=== PATIENT | male | born 1990 | race Caucasian/White ===

== ENCOUNTER 2021-05-05 09:42 | Emergency (ER) | payer SELFPAY ==
[2021-05-05] MEDS ORDERED: Sodium Chloride 0.9% 2.5 ML Syringe FLUSH PRN (09:44)
[2021-05-05] MEDS ORDERED: Sodium Chloride 0.9% 10 ML Syringe FLUSH PRN (09:44)
[2021-05-05] MEDS ORDERED: ceFAZolin 1 GM in Premix Bag 1 BAG IV ONE ×4 (09:46)
--- NOTE | 2021-05-05 09:49 | EDM.PDOC ---
ED HPI GENERAL MEDICAL PROBLEM - General Chief Complaint: Laceration Stated Complaint: CUT TIP OF FINGER OFF WITH SAW Time Seen by Provider: 05/05/21 09:44 - History of Present Illness INITIAL COMMENTS - FREE TEXT/NARRATIVE: 30-year-old male no relevant past medical history up-to-date tetanus vaccination presents for injury to right index finger. Patient was using a table saw when he caught the end of his right index finger. He notes bleeding that was controlled prior to arrival. Denies any other injuries. - Related Data Allergies Allergy/AdvReac Type Severity Reaction Status Date / Time No Known Allergies Allergy Verified 05/05/21 09:47 Home Meds: Home Meds Acetaminophen/oxyCODONE [Percocet 325-5 MG] 1 each PO Q4H PRN #12 tab 05/05/21 [Rx] cephALEXin [Keflex] 500 mg PO Q8H 7 Days #21 cap 05/05/21 [Rx] ED ROS GENERAL - Review of Systems Review Of Systems: Comprehensive ROS is negative, except as noted in HPI. ED EXAM, SKIN/RASH Exam: See Below Exam Limited By: No Limitations General Appearance: Alert, WD/WN, No Apparent Distress Ears: Hearing Grossly Normal Throat/Mouth: Normal Voice, No Airway Compromise Head: Atraumatic, Normocephalic Neck: Normal Inspection Respiratory/Chest: No Respiratory Distress, No Accessory Muscle Use Cardiovascular: Normal Peripheral Pulses Extremities: Other (amputation injury of distal DIP R index finger which does not involve the nail bed; +open fracture) Neurological: Alert, Normal Cognition, Normal Gait Psychiatric: Normal Affect, Normal Mood Skin: Warm, Dry, Intact, Normal Color Course - Vital Signs Last Recorded V/S: Last Vital Signs Temp 97.2 F 05/05/21 09:48 Pulse 94 05/05/21 09:48 Resp 16 05/05/21 09:48 BP 162/86 H 05/05/21 09:48 Pulse Ox 98 05/05/21 09:48 - Orders/Labs/Meds Orders: Active Orders 24 hr Category Date Time Status Sodium Chloride 0.9% [Saline Flush] Med 05/05/21 09:44 Active 10 ml FLUSH ASDIRECTED PRN Sodium Chloride 0.9% [Saline Flush] Med 05/05/21 09:44 Active 2.5 ml FLUSH ASDIRECTED PRN Saline Lock Insert [OM.PC] Stat Oth 05/05/21 09:45 Ordered Medication Orders Sodium Chloride (Sodium Chloride 0.9% 10 Ml Syringe) 10 ml FLUSH ASDIRECTED PRN PRN Reason: Keep Vein Open Last Admin: 05/05/21 10:02 Dose: 10 ml Documented by: YUMIKO Sodium Chloride (Sodium Chloride 0.9% 2.5 Ml Syringe) 2.5 ml FLUSH ASDIRECTED PRN PRN Reason: Keep Vein Open Last Admin: 05/05/21 10:03 Dose: 2.5 ml Documented by: YUMIKO Labs: Laboratory Tests 05/05/21 05/05/21 Range/Units 09:45 09:45 WBC 12.84 H (4.0-11.0) K/uL RBC 5.60 (4.50-5.90) M/uL Hgb 16.2 (13.0-17.0) g/dL Hct 47.2 (38.0-50.0) % MCV 84.3 (80.0-98.0) fL MCH 28.9 (27.0-32.0) pg MCHC 34.3 (31.0-37.0) g/dL RDW Std Deviation 43.5 (28.0-62.0) fl RDW Coeff of Rachel 14 (11.0-15.0) % Plt Count 360 (150-400) K/uL MPV 10.20 (7.40-12.00) fL Neut % (Auto) 58.2 (48.0-80.0) % Lymph % (Auto) 27.4 (16.0-40.0) % Gove % (Auto) 10.0 (0.0-15.0) % Eos % (Auto) 4.1 (0.0-7.0) % Baso % (Auto) 0.3 (0.0-1.5) % Neut # (Auto) 7.5 H (1.4-5.7) K/uL Lymph # (Auto) 3.5 H (0.6-2.4) K/uL Gove # (Auto) 1.3 H (0.0-0.8) K/uL Eos # (Auto) 0.5 (0.0-0.7) K/uL Baso # (Auto) 0.0 (0.0-0.1) K/uL Nucleated RBC % 0.0 /100WBC Nucleated RBCs # 0 K/uL Sodium 140 (136-148) mmol/L Potassium 3.7 (3.5-5.1) mmol/L Chloride 105 (98-107) mmol/L Carbon Dioxide 25.1 (21.0-32.0) mmol/L BUN 20 H (7.0-18.0) mg/dL Creatinine 1.1 (0.8-1.3) mg/dL Est Cr Clr Drug Dosing 107.78 mL/min Estimated GFR (MDRD) > 60.0 ml/min Glucose 140 H (74-106) mg/dL Calcium 9.1 (8.5-10.1) mg/dL Meds: Medications Generic Name Dose Route Start Last Admin Trade Name Freq PRN Reason Stop Dose Admin Sodium Chloride 10 ml 05/05/21 09:44 05/05/21 10:02 Sodium Chloride 0.9% 10 Ml Syringe FLUSH 10 ml ASDIRECTED PRN Administration Keep Vein Open Sodium Chloride 2.5 ml 05/05/21 09:44 05/05/21 10:03 Sodium Chloride 0.9% 2.5 Ml Syringe FLUSH 2.5 ml ASDIRECTED PRN Administration Keep Vein Open Discontinued Medications Generic Name Dose Route Start Last Admin Trade Name Freq PRN Reason Stop Dose Admin Cefazolin Sodium/Dextrose 1 gm 50 mls @ 100 mls/hr 05/05/21 09:46 05/05/21 10:02 / Premix IV 05/05/21 10:15 100 mls/hr ONETIME ONE Administration Cefazolin Sodium/Dextrose 1 gm 50 mls @ 100 mls/hr 05/05/21 09:46 05/05/21 10:02 / Premix IV 05/05/21 10:15 100 mls/hr ONETIME ONE Administration - Re-Assessments/Exams Free Text/Narrative Re-Assessment/Exam: 05/05/21 09:48 We will get x-ray. Will give IV antibiotics for open fracture. Will reach out to hand surgery for disposition recommendations. 05/05/21 10:[address] Guillen, hand surgery at [facility], who agrees with plan for IV antibiotics, discharged on Keflex, irrigated and wrapped wound, follow-up with him Cory morning. Patient is aware of the plan. Departure - Departure Time of Disposition: 10:30 Disposition: Home, Self-Care 01 Condition: Good Clinical Impression: Fingertip amputation Qualifiers: Encounter type: initial encounter Qualified Code(s): S68.119A - Complete traumatic metacarpophalangeal amputation of unspecified finger, initial encounter - Discharge Information Prescriptions: cephALEXin [Keflex] 500 mg PO Q8H 7 Days #21 cap Acetaminophen/oxyCODONE [Percocet 325-5 MG] 1 each PO Q4H PRN #12 tab PRN Reason: Pain Instructions: Traumatic Finger Amputation, COVID-19 Vaccine Information Referrals: PCP,None [Primary Care Provider] - Forms: ED Department Discharge Additional Instructions: Please follow-up with Dr. Guillen on Saturday. His information is provided below. Please take antibiotics as prescribed. I have also sent a short course of pain medication to your pharmacy. Dr. Guillen Hand [facility] W[facility] Surgery - [address] [place] [address] [address]rd Floor [phone] The best way to protect yourself and others from COVID-19 is to take one of the three safe and effective vaccines that have been proven to substantially reduce risk of both infection and severe illness. [facility] is currently offering COVID vaccinations for anyone age 18 and older. To schedule an appointment call [phone]. Or to be contacted by our clinics about scheduling your vaccine online, please go to [email or web address] The following information is given to patients seen in the emergency department who are being discharged to home. This information is to outline your options for follow-up care. We provide all patients seen in our emergency department with a follow-up referral. The need for follow-up, as well as the timing and circumstances, are variable depending upon the specifics of your emergency department visit. If you don't have a primary care physician on staff, we will provide you with a referral. We always advise you to contact your personal physician following an emergency department visit to inform them of the circumstance of the visit and for follow-up with them and/or the need for any referrals to a consulting specialist. The emergency department will also refer you to a specialist when appropriate. This referral assures that you have the opportunity for follow-up care with a specialist. All of these measure are taken in an effort to provide you with optimal care, which includes your follow-up. Under all circumstances we always encourage you to contact your private physician who remains a resource for coordinating your care. When calling for follow-up care, please make the office aware that this follow-up is from your recent emergency room visit. If for any reason you are refused follow-up, please contact the [facility] Emergency Department at and asked to speak to the emergency department charge nurse. Please follow up with your primary care physician. If you do not have a primary care physician, see below: [facility] [address] [place] [id number] My [facility] [address] [place] [id number] Sepsis Event Note (ED) - Focused Exam Vital Signs: Vital Signs Temp Pulse Resp BP Pulse Ox 05/05/21 09:48 97.2 F 94 16 162/86 H 98 - My Orders Last 24 Hours: My Active Orders 05/05/21 09:44 Sodium Chloride 0.9% [Saline Flush] 10 ml FLUSH ASDIRECTED PRN Sodium Chloride 0.9% [Saline Flush] 2.5 ml FLUSH ASDIRECTED PRN 05/05/21 09:45 Saline Lock Insert [OM.PC] Stat - Assessment/Plan Last 24 Hours: My Active Orders 05/05/21 09:44 Sodium Chloride 0.9% [Saline Flush] 10 ml FLUSH ASDIRECTED PRN Sodium Chloride 0.9% [Saline Flush] 2.5 ml FLUSH ASDIRECTED PRN 05/05/21 09:45 Saline Lock Insert [OM.PC] Stat
[2021-05-05 10:30] LABS: BLOOD UREA NITROGEN,BUN 20 mg/dL (7.0-18.0); CARBON DIOXIDE,CO2 25.1 mmol/L (21.0-32.0); CHLORIDE,CL 105 mmol/L (98-107); GLUCOSE RANDOM 140 mg/dL (74-106); POTASSIUM,K 3.7 mmol/L (3.5-5.1); SODIUM,NA 140 mmol/L (136-148)
--- NOTE | 2021-05-05 10:32 | CR ---
INDICATION: Cut off finger tip with saw. COMPARISON: None. TECHNIQUE: Right index finger 3 views. FINDINGS: Large soft tissue defect of the distal index finger tip with underlying osseous fragmentation/nondisplaced fracture and loss of dorsal distal portion of the distal phalanx best seen on lateral view. IMPRESSION: Soft tissue injury with underlying nondisplaced fracture and loss of fracture fragment/bone of distal aspect of the distal phalanx. Dictated by Ciro Delcid MD @ 05/05/2021 10:31:[address] Ciro Delcid @ May 05 2021 10:31AM
== END 2021-05-05 10:44 | disposition home or self-care (01) ==
LOC: MW.ED 09:42
DX: S68.620A Partial traumatic transphalangeal amputation of right index finger, initial encounter (principal); W27.0XXA Contact with workbench tool, initial encounter
CPT/HCPCS: 36415; 73140; 80048; 85025; 96365; 99283; J0690